=== PATIENT | female | born 1945 | race Caucasian/White ===

== ENCOUNTER → 2018-09-16 | Outpatient (CLI) | payer MEDICARE | END | disposition home or self-care (01) | LOC: RAD 15:06 | PROVIDERS: ATTEND Family Medicine | DX: M16.0 Bilateral primary osteoarthritis of hip (principal); M25.752 Osteophyte, left hip; M25.751 Osteophyte, right hip | CPT/HCPCS: 73523 ==

== ENCOUNTER 2018-11-10 08:37 | Outpatient (CLI) | payer MEDICAID, MEDICARE | END 2018-11-10 23:59 | disposition home or self-care (01) | LOC: CVU 08:37 | PROVIDERS: ATTEND Surgery | DX: I70.1 Atherosclerosis of renal artery (principal); I65.23 Occlusion and stenosis of bilateral carotid arteries; I12.9 Hypertensive chronic kidney disease with stage 1 through stage 4 chronic kidney disease, or unspecified chronic kidney disease; N18.9 Chronic kidney disease, unspecified; J44.9 Chronic obstructive pulmonary disease, unspecified; E03.9 Hypothyroidism, unspecified; E78.5 Hyperlipidemia, unspecified; F17.210 Nicotine dependence, cigarettes, uncomplicated; Z88.2 Allergy status to sulfonamides | CPT/HCPCS: 93880; 93975 ==

== ENCOUNTER → 2019-05-11 | Outpatient (CLI) | payer MEDICARE, MEDICAID | END | disposition home or self-care (01) | LOC: RAD 12:13 | PROVIDERS: ATTEND Family Medicine | DX: M16.11 Unilateral primary osteoarthritis, right hip (principal); M25.751 Osteophyte, right hip ==

== ENCOUNTER → 2019-05-13 | Outpatient (CLI) | payer MEDICARE, MEDICAID ==
[~2019-05-13] MED LIST: REGADENOSON 0.4 MG/5 ML SYRINGE ONE
== END | disposition home or self-care (01) ==
LOC: CFH 04-30 08:06
PROVIDERS: ATTEND Internal Medicine Cardiovascular Disease
DX: I70.0 Atherosclerosis of aorta (principal)
CPT/HCPCS: 78452; 93017; A9502; J2785

== ENCOUNTER → 2020-11-14 | Outpatient (CLI) | payer MEDICARE, MEDICAID ==
[2020-11-14 09:06] LABS: MICROSCOPIC AUTO
[2020-11-14 09:08] LABS: BASOPHILS % (AUTO) 1 % (0-1); EOSINOPHILS % (AUTO) 2 % (1-7); LYMPHOCYTES % (AUTO) 28 % (22-44); MEAN CORPUSCULAR HEMOGLOBIN 29.9 pg (27.0-34.8); MEAN CORPUSCULAR HGB CONC 32.9 g/dL (32.4-35.8); MEAN PLATELET VOLUME 8.1 fL (7.4-10.4); MONOCYTES % (AUTO) 10 % (2-9); NEUTROPHILS % (AUTO) 59 % (42-75); PLATELET COUNT 320 x10^3/uL (130-400); RED BLOOD COUNT 4.27 x10^6/uL (3.82-5.3); RED CELL DISTRIBUTION WIDTH 13.7 % (9.6-15.2)
[2020-11-14 09:21] LABS: ALBUMIN 3.4 g/dL (3.4-5.0); CALCIUM 9.2 mg/dL (8.5-10.1); CREATININE 1.64 mg/dL (0.55-1.02)
[2020-11-14 09:57] LABS: ANION GAP 5 mmol/L (5-15); CHLORIDE 108 mmol/L (98-107)
== END | disposition home or self-care (01) ==
LOC: LAB 08:19
PROVIDERS: ATTEND Internal Medicine Nephrology
DX: N18.4 Chronic kidney disease, stage 4 (severe) (principal)
CPT/HCPCS: 36415; 80069; 81001; 82306; 82570; 83970; 84156; 84550; 85025; 87077; 87086; 87186

== ENCOUNTER → 2020-12-05 | Outpatient (CLI) | payer MEDICARE, MEDICAID | END | disposition home or self-care (01) | LOC: RAD 08:50 | PROVIDERS: ATTEND Internal Medicine Nephrology | DX: N26.1 Atrophy of kidney (terminal) (principal); N28.1 Cyst of kidney, acquired; N18.4 Chronic kidney disease, stage 4 (severe) | CPT/HCPCS: 76770 ==